=== PATIENT | male | born 1940 | race Caucasian/White ===

== ENCOUNTER 2019-10-23 17:21 | Observation (INO) | payer OTHER, MEDICARE ==
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
--- NOTE | 2019-10-23 18:35 | RADIOLOGY REPORT (SQ) ---
EXAM DESCRIPTION: CHEST 2 VIEWS IMAGES COMPLETED DATE/TIME: 10/23/2019 6:15 pm REASON FOR STUDY: chest pain has taken ntg x 3 pacemaker COMPARISON: None. EXAM PARAMETERS: NUMBER OF VIEWS: two views TECHNIQUE: Digital Frontal and Lateral radiographic views of the chest acquired. RADIATION DOSE: NA LIMITATIONS: none FINDINGS: LUNGS AND PLEURA: No opacities, masses or pneumothorax. No pleural effusion. MEDIASTINUM AND HILAR STRUCTURES: No masses or contour abnormalities. HEART AND VASCULAR STRUCTURES: Heart normal size. No evidence for failure. BONES: No acute findings. HARDWARE: Transvenous cardiac pacer. OTHER: No other significant finding. IMPRESSION: No evidence of acute cardiopulmonary abnormality. TECHNICAL DOCUMENTATION: JOB ID: [id number] 2010 [employer]- All Rights Reserved Reading location - IP/workstation name: [email or web address]
[2019-10-23 19:00] LABS: ABSOLUTE EOSINOPHILS # (AUTO) 0.2 10^3/uL (0.0-0.6); ABSOLUTE MONOCYTES (AUTO) 0.5 10^3/uL (0.1-1.4); ABSOLUTE NEUT (AUTO) 3.2 10^3/uL (1.7-8.2); BASOPHILS % (AUTO) 0.4 % (0-2); EOSINOPHILS % (AUTO) 4.5 % (0-6); HEMATOCRIT 39.2 % (37.9-51.0); HEMOGLOBIN 13.3 g/dL (13.5-17.0); LYMPHOCYTES % (AUTO) 19.2 % (13-45); MEAN CORPUSCULAR HEMOGLOBIN 30.1 pg (27.0-33.4); MEAN CORPUSCULAR VOLUME 89 fl (80-97); MONOCYTES % (AUTO) 10.3 % (3-13); PLATELET COUNT 145 10^3/uL (150-450); RED BLOOD COUNT 4.43 10^6/uL (4.35-5.55); RED CELL DISTRIBUTION WIDTH 14.6 % (11.5-14.0); SEGMENTED NEUTROPHILS % (AUTO) 65.6 % (42-78); TOTAL CELLS COUNTED % (AUTO) 100 %; WHITE BLOOD COUNT 4.9 10^3/uL (4.0-10.5)
[2019-10-23 19:10] LABS: INTERNATIONAL RATION (INR) 0.95; PROTHROMBIN TIME 12.9 SEC (11.4-15.4)
[2019-10-23 19:11] LABS: PARTIAL THROMBOPLASTIN TIME 31.6 SEC (23.5-35.8)
[2019-10-23 19:17] LABS: ALBUMIN 3.8 g/dL (3.5-5.0); ALKALINE PHOSPHATASE 71 U/L (38-126); ANION GAP 7 (5-19); ASPARTATE AMINO TRANSFERASE 22 U/L (17-59); BILIRUBIN,DIRECT 0.2 mg/dL (0.0-0.4); BILIRUBIN,TOTAL 0.6 mg/dL (0.2-1.3); BLOOD UREA NITROGEN 18 mg/dL (7-20); CALCIUM 8.9 mg/dL (8.4-10.2); CARBON DIOXIDE 30 mmol/L (22-30); CHLORIDE 99 mmol/L (98-107); CREATINE KINASE 102 U/L (55-170); GLUCOSE 110 mg/dL (75-110); POTASSIUM 3.9 mmol/L (3.6-5.0); TOTAL PROTEIN 6.5 g/dL (6.3-8.2)
[2019-10-23 19:31] LABS: NT PRO BNP 146 pg/mL (<450)
[2019-10-23 19:33] LABS: TROPONIN I < 0.012 ng/mL
--- NOTE | 2019-10-23 20:53 | EKG REPORT ---
SEVERITY:- ABNORMAL ECG - SINUS OR ECTOPIC ATRIAL RHYTHM FIRST DEGREE AV BLOCK BORDERLINE IVCD WITH LAD : Confirmed by: Clement Curtis MD 23-Oct-2019 20:52:17
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
[2019-10-23] MEDS ORDERED: MORPHINE SULFATE 10 MG/ML INJ IV ONE (21:20)
[2019-10-23] MEDS ORDERED: ONDANSETRON HCL INJ/PF 4 MG/2 ML SDV IV ONE (21:21)
[2019-10-24] MEDS ORDERED: MAG HYDROX/AL HYDROX/SIMETH SUSP 30 ML UDCUP PO PRN (00:22)
[2019-10-24] MEDS ORDERED: MAGNESIUM HYDROXIDE SUSP 30 ML UDCUP PO PRN (00:22)
[2019-10-24] MEDS ORDERED: LEVALBUTEROL HCL NEB 0.63 MG/3 ML AMPUL NEB PRN (00:22)
[2019-10-24] MEDS ORDERED: ONDANSETRON HCL INJ/PF 4 MG/2 ML SDV IV PRN (00:22)
[2019-10-24] MEDS ORDERED: METOPROLOL TARTRATE PF/INJ 5 MG/5 ML SDV IV PRN (00:25)
[2019-10-24] MEDS ORDERED: MELATONIN 5 MG TABLET PO PRN (00:25)
[2019-10-24] MEDS ORDERED: GUAIFENESIN SYRP 200 MG/10 ML UDC PO PRN (00:25)
[2019-10-24] MEDS ORDERED: HYDRALAZINE HCL INJ/PF 20 MG/1 ML SDV IV PRN (00:25)
[2019-10-24] MEDS ORDERED: LORAZEPAM INJ 2 MG/1 ML VIAL IV PRN (00:25)
[2019-10-24] MEDS ORDERED: MORPHINE SULFATE 10 MG/ML INJ IV PRN ×3 (00:25→00:31)
[2019-10-24] MEDS ORDERED: ACETAMINOPHEN 325 MG TABLET PO PRN (00:25)
[2019-10-24] MEDS: MORPHINE SULFATE 10 MG/ML INJ IV PRN ×2 (02:08→05:55)
--- NOTE | 2019-10-24 02:21 | PDOC H&P ---
History of Present Illness Admission Date/PCP: 10/23/2019 23:51 [facility] Patient complains of: Chest pain History of Present Illness: MALLORY ORDONEZ is a 79 year old male who presented to the emergency room with a 1 day history of chest pain. He admits the onset of episodic chest pains this morning and occurring an additional 2 times prior to being seen in the emergency room. The chest pain is a severe stabbing pain in his left chest which radiates to his left shoulder and then into the left side of his neck. The episodes of pain last for less than a minute and are accompanied by diaphoresis. He denies other associated or accompanying signs and symptoms with the pain. He denies prior similar episodes. He has not identified any aggravating or ameliorating factors for his chest pain. In the emergency room he was noted to have a negative cardiac evaluation but was subsequently admitted to the hospital for further evaluation and treatment on observation status. Past Medical History Cardiac Medical History: Reports: Congestive Heart Failure, DVT, Hyperlipidema, Hypertension, Pulmonary Embolism Pulmonary Medical History: Denies: Asthma, Chronic Obstructive Pulmonary Disease (COPD), Sleep Apnea EENT Medical History: Denies: Cataracts, Ears - Hearing aids Neurological Medical History: Denies: Hemorrhagic CVA, Ischemic CVA, Seizures Endocrine Medical History: Reports: Obesity Denies: Diabetes Mellitus Type 1, Diabetes Mellitus Type 2, Hyperthyroidism, Hypothyroidism Renal/ Medical History: Denies: Chronic Kidney Disease, Nephrolithiasis Malignancy Medical History: Reports: None GI Medical History: Denies: Cirrhosis, Hepatitis, Peptic Ulcer Disease Musculoskeltal Medical History: Denies: Fibromyalgia, Gout Skin Medical History: Denies: Eczema Psychiatric Medical History: Denies: Alcohol Dependency, Substance Abuse, Tobacco Dependency Traumatic Medical History: Reports: None Hematology: Denies: Anemia, Bleeding Tendencies Infectious Medical History: Reports: None Past Surgical History Past Surgical History: Reports: Appendectomy, Internal Defibrillator - With pacemaker, Orthopedic Surgery - Back surgery Social History Information Source: Patient Lives with: Spouse/Significant other Smoking Status: Former Smoker Electronic Cigarette use?: No Frequency of Alcohol Use: None Hx Recreational Drug Use: No Drugs: None Hx Prescription Drug Abuse: No - Advance Directive Resuscitation Status: Full Code Surrogate healthcare decision maker:: Vaishali Ordonez Family History Family History: denies: CAD, DM, Hypertension, Malignancy Parental Family History Reviewed: Yes Children Family History Reviewed: No Sibling(s) Family History Reviewed.: Yes Medication/Allergy Allergies/Adverse Reactions: No Known Allergies Allergy (Verified 10/23/19 17:57) Review of Systems Constitutional: ABSENT: chills, fever(s) Eyes: ABSENT: visual disturbances, other - Eye pain Ears: ABSENT: hearing changes, other - Ear pain Nose, Mouth, and Throat: ABSENT: headache(s), sore throat Cardiovascular: PRESENT: as per HPI, chest pain. ABSENT: palpitations Respiratory: ABSENT: cough, dyspnea Gastrointestinal: ABSENT: abdominal pain, constipation, diarrhea, nausea, vomiting Musculoskeletal: ABSENT: joint swelling, muscle weakness Integumentary: PRESENT: as per HPI, diaphoresis. ABSENT: pruritus, rash Neurological: ABSENT: confusion, convulsions, focal weakness, numbness, syncope Psychiatric: ABSENT: anxiety, depression Endocrine: ABSENT: cold intolerance, heat intolerance Hematologic/Lymphatic: ABSENT: easy bleeding, easy bruising Allergic/Immunologic: ABSENT: seasonal rhinorrhea Physical Exam Vital Signs: Temp Pulse Resp BP Pulse Ox 98.4 F 64 18 119/55 L 93 10/23/19 17:43 10/23/19 17:43 10/23/19 22:03 10/23/19 22:03 10/23/19 22:08 Intake & Output 10/21/19 10/22/19 10/23/19 23:59 23:59 23:59 Weight 117.934 kg General appearance: PRESENT: no acute distress, obese Head exam: PRESENT: atraumatic, normocephalic Eye exam: PRESENT: conjunctiva pink. ABSENT: conjunctival injection, scleral icterus Ear exam: PRESENT: normal external ear exam. ABSENT: bleeding, drainage Mouth exam: PRESENT: dry mucosa, neck supple Neck exam: ABSENT: thyromegaly, tracheal deviation Respiratory exam: PRESENT: clear to auscultation tim, symmetrical, unlabored Cardiovascular exam: PRESENT: RRR. ABSENT: clicks, gallop, rubs Pulses: PRESENT: normal radial pulses, normal dorsalis pedis pul Vascular exam: PRESENT: normal capillary refill. ABSENT: pallor GI/Abdominal exam: PRESENT: normal bowel sounds, soft. ABSENT: tenderness Rectal exam: PRESENT: deferred Extremities exam: ABSENT: joint swelling, pedal edema Musculoskeletal exam: ABSENT: deformity, dislocation Neurological exam: PRESENT: alert, oriented to person, oriented to place, oriented to time, oriented to situation, CN II-XII grossly intact. ABSENT: motor sensory deficit Psychiatric exam: PRESENT: appropriate affect, normal mood Skin exam: PRESENT: dry, intact, warm. ABSENT: jaundice, rash, urticaria Results Laboratory Results: 10/23/19 18:39 10/23/19 18:39 10/23/19 10/23/19 18:39 18:39 WBC 4.9 RBC 4.43 Hgb 13.3 L Hct 39.2 MCV 89 MCH 30.1 MCHC 34.0 RDW 14.6 H Plt Count 145 L Seg Neutrophils % 65.6 Sodium 136.1 L Potassium 3.9 Chloride 99 Carbon Dioxide 30 Anion Gap 7 BUN 18 Creatinine 1.23 Est GFR ( Amer) > 60 Glucose 110 Calcium 8.9 Magnesium 1.9 Total Bilirubin 0.6 AST 22 Alkaline Phosphatase 71 Total Protein 6.5 Albumin 3.8 10/23/19 10/23/19 10/23/19 18:39 18:39 22:40 Creatine Kinase 102 Troponin I < 0.012 < 0.012 NT-Pro-B Natriuret Pep 146 Impressions: Chest X-Ray 10/23/19 18:01 IMPRESSION: No evidence of acute cardiopulmonary abnormality. Assessment and Plan - Diagnosis (1) Chest pain Qualifiers: Chest pain type: unspecified Qualified Code(s): R07.9 - Chest pain, unspecified Is this a current diagnosis for this admission?: Yes (2) Hypertension Qualifiers: Hypertension type: essential hypertension Qualified Code(s): I10 - Essential (primary) hypertension Is this a current diagnosis for this admission?: Yes (3) Hyperlipidemia Qualifiers: Hyperlipidemia type: unspecified Qualified Code(s): E78.5 - Hyperlipidemia, unspecified Is this a current diagnosis for this admission?: Yes (4) Chronic congestive heart failure Qualifiers: Heart failure type: unspecified Qualified Code(s): I50.9 - Heart failure, unspecified Is this a current diagnosis for this admission?: Yes - Plan Summary Summary: Patient will be admitted to the medical service where he will receive routine supportive and symptomatic cares in a telemetry bed. A cardiology consultation with Dr. Curtis will be obtained. Serial cardiac enzymes will be performed. Patient will receive morphine sulfate 2 to 4 mg IV every 2 hours as needed for pain. He will receive Ativan 1 mg IV every 4 hours as needed for anxiety or restlessness. He will be placed on a cardiac diet. Patient's home medications will be resumed, as appropriate, as soon as his medication list can be verified and reconciled. CBCs, metabolic profiles, lipid profiles, thyroid profiles and additional laboratory and/or radiographic evaluations will be obtained as ne eded. - Time Time Spent with patient: 15-24 minutes Medications reviewed and adjusted accordingly: Yes Anticipated Discharge Disposition: Home, Self Care Anticipated Discharge Timeframe: within 48 hours - Inpatient Certification Based on my medical assessment, after consideration of the patient's comorbidities, presenting symptoms, or acuity I expect that the services needed warrant INPATIENT care.: Yes I certify that my determination is in accordance with my understanding of Medicare's requirements for reasonable and necessary INPATIENT services [42 CFR 412.3e].: Yes Medical Necessity: Need Close Monitoring Due to Risk of Patient Decompensation, Need For Continuous Telemetry Monitoring, Risk of Complication if Not Cared For in Hospital
[2019-10-24] MEDS: HEPARIN SOD (PORCINE) 5,000 UNIT/ML 1 ML VIAL SUBCUT SCH ×3 (05:03→21:31)
[2019-10-24 06:29] LABS: CREATINE KINASE MB 1.71 ng/mL (<4.55)
[2019-10-24 06:30] LABS: TROPONIN I < 0.012 ng/mL
[2019-10-24] MEDS: FAMOTIDINE 20 MG TABLET PO SCH ×2 (09:11→21:29)
[2019-10-24] MEDS: DOCUSATE SODIUM 100 MG CAPSULE PO SCH ×2 (09:11→19:02)
[2019-10-24 12:19] LABS: CREATINE KINASE MB 1.65 ng/mL (<4.55)
[2019-10-24 12:29] LABS: TROPONIN I < 0.012 ng/mL
[2019-10-24] MEDS ORDERED: NITROGLYCERIN 0.4 MG/TAB 25 TAB/BOTTLE SL PRN (13:15)
--- NOTE | 2019-10-24 13:15 | PDOC PROGRESS REPORT ---
Subjective Progress Note for:: 10/24/19 Subjective:: Patient describes history of having left heart cath done last year at which time he was told that he had some CAD but not obstructive enough for intervention. He denies any stents in the heart. He describes the chest pain as lasting only for several seconds upon occurrence. Does say he takes isosorbide at home. Still awaiting medical reconciliation. Currently not having chest pain. Reason For Visit: CHEST PAIN Physical Exam Vital Signs: Temp Pulse Resp BP Pulse Ox 98.5 F 67 16 125/74 93 10/24/19 11:33 10/24/19 11:33 10/24/19 11:33 10/24/19 11:33 10/24/19 11:33 Intake & Output 10/23/19 10/24/19 10/25/19 06:59 06:59 06:59 Intake Total 450 480 Output Total 400 Balance 50 480 Weight 117.3 kg General appearance: PRESENT: no acute distress, cooperative Neck exam: ABSENT: JVD Respiratory exam: PRESENT: clear to auscultation tim, tachypnea. ABSENT: symmetrical, unlabored Cardiovascular exam: PRESENT: RRR, +S1, +S2. ABSENT: tachycardia GI/Abdominal exam: PRESENT: soft. ABSENT: rebound, rigid, tenderness Neurological exam: PRESENT: alert, awake Results Laboratory Results: 10/23/19 18:39 10/23/19 18:39 10/23/19 10/23/19 18:39 18:39 WBC 4.9 RBC 4.43 Hgb 13.3 L Hct 39.2 MCV 89 MCH 30.1 MCHC 34.0 RDW 14.6 H Plt Count 145 L Seg Neutrophils % 65.6 Sodium 136.1 L Potassium 3.9 Chloride 99 Carbon Dioxide 30 Anion Gap 7 BUN 18 Creatinine 1.23 Est GFR ( Amer) > 60 Glucose 110 Calcium 8.9 Magnesium 1.9 Total Bilirubin 0.6 AST 22 Alkaline Phosphatase 71 Total Protein 6.5 Albumin 3.8 10/23/19 10/23/19 10/23/19 18:39 18:39 22:40 Creatine Kinase 102 CK-MB (CK-2) Troponin I < 0.012 < 0.012 NT-Pro-B Natriuret Pep 146 10/24/19 10/24/19 10/24/19 04:33 04:33 11:12 Creatine Kinase 79 78 CK-MB (CK-2) 1.71 Troponin I < 0.012 NT-Pro-B Natriuret Pep 10/24/19 11:12 Creatine Kinase CK-MB (CK-2) 1.65 Troponin I < 0.012 NT-Pro-B Natriuret Pep Impressions: Chest X-Ray 10/23/19 18:01 IMPRESSION: No evidence of acute cardiopulmonary abnormality. Assessment and Plan - Diagnosis (1) Chest pain Qualifiers: Chest pain type: unspecified Qualified Code(s): R07.9 - Chest pain, unspecified Is this a current diagnosis for this admission?: Yes (2) Hyperlipidemia Qualifiers: Hyperlipidemia type: unspecified Qualified Code(s): E78.5 - Hyperlipidemia, unspecified Is this a current diagnosis for this admission?: Yes (3) Hypertension Qualifiers: Hypertension type: essential hypertension Qualified Code(s): I10 - Essential (primary) hypertension Is this a current diagnosis for this admission?: Yes - Plan Summary Summary: 10/23/2019 Patient will be admitted to the medical service where he will receive routine supportive and symptomatic cares in a telemetry bed. A cardiology consultation with Dr. Curtis will be obtained. Serial cardiac enzymes will be performed. Patient will receive morphine sulfate 2 to 4 mg IV every 2 hours as needed for pain. He will receive Ativan 1 mg IV every 4 hours as needed for anxiety or restlessness. He will be placed on a cardiac diet. Patient's home medications will be resumed, as appropriate, as soon as his medication list can be verified and reconciled. CBCs, metabolic profiles, lipid profiles, thyroid profiles and additional laboratory and/or radiographic evaluations will be obtained as needed. 10/24/2019 D-dimer is normal. Troponins were negative. He admits to having left heart catheterization done by his rounder and backer a year ago at which time he was told that he has CAD but not obstructive enough for intervention. Denies any stents in the heart. Currently not in heart failure. His chest pain episodes seem to be very brief in nature lasting seconds mostly but substernal and radiates to left arm. Wonder if he is having coronary or esophageal spasms. He states he takes isosorbide at home. Still awaiting pharmacy to verify home meds for reconciliation. Cardiology has been consulted. - Time Time Spent with patient: 15-24 minutes Anticipated Discharge Disposition: Home, Self Care Anticipated Discharge Timeframe: within 24 hours
--- NOTE | 2019-10-24 14:31 | PDOC CONSULTATION ---
Consultation Consult Date: 10/24/19 Attending physician:: KATI HENNESSY Provider Consulted: BRISSA MORELOS Consult reason:: Chest pain History of Present Illness Admission Date/PCP: 10/23/19 23:[facility] Patient complains of: Chest pain History of Present Illness: MALLORY ORDONEZ is a 79 year old male With the following active problems 1. Pulmonary embolism 2. Systemic anticoagulation 3. Systemic hypertension 4. Dyslipidemia 5. Left-sided permanent pacemaker Patient was admitted on account of intermittent episodes of sharp stabbing chest pain with radiation across the left shoulder. No prior mention of coronary artery disease. No prior cardiac work-up reported. His permanent pacemaker was implanted originally in urine. Reasons for this are unclear. He is already had a generator change. He is on systemic anticoagulation for pulmonary embolism with warfarin. He reports exposure to agent orange and cardiac ailment on account of that. No further details available. He does not recall his medications. But does not report any recent cardiac evaluation. He does not smoke cigarettes No major surgeries other than pacemaker reported to me. Permanent pacemaker implantation is reported, appendectomy, orthopedic surgery No familial illnesses reported Review of systems is positive for chest pain negative for dyspnea nausea vomiting syncope presyncope PND, orthopnea or abdominal pain. Full 11 review of systems was asked. Pertinent positives noted here and in the HPI all other systems appear to be negative. Past Medical History Cardiac Medical History: Reports: Congestive Heart Failure, DVT, Hyperlipidema, Hypertension, Pulmonary Embolism Pulmonary Medical History: Denies: Asthma, Chronic Obstructive Pulmonary Disease (COPD), Sleep Apnea EENT Medical History: Denies: Cataracts, Ears - Hearing aids Neurological Medical History: Denies: Hemorrhagic CVA, Ischemic CVA, Seizures Endocrine Medical History: Reports: Obesity Denies: Diabetes Mellitus Type 1, Diabetes Mellitus Type 2, Hyperthyroidism, Hypothyroidism Renal/ Medical History: Denies: Chronic Kidney Disease, Nephrolithiasis Malignancy Medical History: Reports: None GI Medical History: Denies: Cirrhosis, Hepatitis, Peptic Ulcer Disease Musculoskeltal Medical History: Denies: Fibromyalgia, Gout Skin Medical History: Denies: Eczema Psychiatric Medical History: Denies: Alcohol Dependency, Depression, Substance Abuse, Tobacco Dependency Traumatic Medical History: Reports: None Hematology: Denies: Anemia, Bleeding Tendencies Infectious Medical History: Reports: None Past Surgical History Past Surgical History: Reports: Appendectomy, Internal Defibrillator - With pacemaker, Orthopedic Surgery - spine, Pacemaker Social History Lives with: Spouse/Significant other Smoking Status: Former Smoker Electronic Cigarette use?: No Frequency of Alcohol Use: None Hx Recreational Drug Use: No Drugs: None Hx Prescription Drug Abuse: No - Advance Directive Resuscitation Status: Full Code Family History Family History: Reviewed & Not Pertinent Parental Family History Reviewed: Yes - No familial no familial illnesses Children Family History Reviewed: NA Sibling(s) Family History Reviewed.: NA Medication/Allergy Home Medications: Amlodipine Besylate [Norvasc 2.5 mg Tablet] 2.5 mg PO DAILY 10/24/19 Aspirin [Ecotrin 81 mg EC Tablet] 81 mg PO DAILY 10/24/19 Atorvastatin Calcium [Lipitor 80 mg Tablet] 80 mg PO QHS 10/24/19 Cholecalciferol (Vitamin D3) [Vitamin D3] 50 mcg PO DAILY 10/24/19 Fluoxetine HCl [Prozac 20 mg Capsule] 40 mg PO DAILY 10/24/19 Furosemide [Lasix 40 mg Tablet] 40 mg PO BID@,12 10/24/19 Gabapentin [Neurontin 300 mg Capsule] 300 mg PO TID 10/24/19 Isosorbide Mononitrate [Imdur 60 mg Tablet.er] 60 mg PO DAILY 10/24/19 Multivitamin 1 tab PO DAILY 10/24/19 Omeprazole 20 mg PO BID 10/24/19 Potassium Citrate [Potassium Citrate ER] 10 meq PO BID 10/24/19 Prazosin HCl [Minipress] 2 mg PO QHS 10/24/19 Ranolazine [Ranexa] 1,000 mg PO DAILY 10/24/19 Tamsulosin HCl [Flomax 0.4 mg Cap.sr] 0.4 mg PO DAILY 10/24/19 Trazodone HCl 100 mg PO QHS 10/24/19 Allergies/Adverse Reactions: No Known Allergies Allergy (Verified 10/23/19 17:57) Review of Systems Constitutional: PRESENT: as per HPI Eyes: PRESENT: as per HPI Ears: PRESENT: as per HPI Cardiovascular: PRESENT: chest pain Physical Exam Vital Signs: Temp Pulse Resp BP Pulse Ox 98.5 F 67 16 125/74 93 10/24/19 11:33 10/24/19 11:33 10/24/19 11:33 10/24/19 11:33 10/24/19 11:33 Intake & Output 09/11/0210/24/19 10/25/19 06:59 06:59 06:59 Intake Total 450 480 Output Total 400 Balance 50 480 Weight 117.3 kg General appearance: PRESENT: no acute distress, cooperative, obese, well- developed, well-nourished Head exam: PRESENT: atraumatic, normocephalic Eye exam: PRESENT: EOMI Mouth exam: PRESENT: moist Respiratory exam: PRESENT: clear to auscultation tim, symmetrical, unlabored Cardiovascular exam: PRESENT: RRR, +S1, +S2 - Left chest wall permanent pacemaker implant site is well-healed. No edema erythema or excoriation is noted Pulses: PRESENT: normal radial pulses GI/Abdominal exam: PRESENT: soft Rectal exam: PRESENT: deferred Neurological exam: PRESENT: alert, awake, oriented to person, oriented to place, oriented to time Psychiatric exam: PRESENT: appropriate affect Skin exam: PRESENT: dry, intact, normal color Results Laboratory Results: 10/23/19 18:39 10/23/19 18:39 10/23/19 10/23/19 18:39 18:39 WBC 4.9 RBC 4.43 Hgb 13.3 L Hct 39.2 MCV 89 MCH 30.1 MCHC 34.0 RDW 14.6 H Plt Count 145 L Seg Neutrophils % 65.6 Sodium 136.1 L Potassium 3.9 Chloride 99 Carbon Dioxide 30 Anion Gap 7 BUN 18 Creatinine 1.23 Est GFR ( Amer) > 60 Glucose 110 Calcium 8.9 Magnesium 1.9 Total Bilirubin 0.6 AST 22 Alkaline Phosphatase 71 Total Protein 6.5 Albumin 3.8 10/23/19 10/23/19 10/23/19 18:39 18:39 22:40 Creatine Kinase 102 CK-MB (CK-2) Troponin I < 0.012 < 0.012 NT-Pro-B Natriuret Pep 146 10/24/19 10/24/19 10/24/19 04:33 04:33 11:12 Creatine Kinase 79 78 CK-MB (CK-2) 1.71 Troponin I < 0.012 NT-Pro-B Natriuret Pep 10/24/19 11:12 Creatine Kinase CK-MB (CK-2) 1.65 Troponin I < 0.012 NT-Pro-B Natriuret Pep EKG Comments: Twelve-lead EKG 10/23/2019. Independently viewed by me. Sinus or ectopic rhythm, 64 bpm, first-degree AV block, IVCD, QTC is 446 ms Chest x-ray 10/23/2019 No evidence of acute cardiopulmonary abnormality Cardiac troponin negative x4 Impressions: Chest X-Ray 10/23/19 18:01 IMPRESSION: No evidence of acute cardiopulmonary abnormality. Assessment & Plan - Diagnosis (1) Chest pain Qualifiers: Chest pain type: unspecified Qualified Code(s): R07.9 - Chest pain, unspecified Is this a current diagnosis for this admission?: Yes Plan: Patient's description of chest pain is atypical with sharp sporadic episodes. There is no effort correlation Although he did not report to me it is chronicled in the chart that patient did have a cardiac catheterization not too long ago. It would be reasonable to procure the results of this test. If there was no obstructive coronary artery disease mentioned and as patient reports he is never received any stents there is no indication to pursue stress testing. Would hold off on proceeding with any testing until we get reports. This can be pursued as an outpatient Would recommend continuing medications as before once we procure a list from the . (2) Hypertension Qualifiers: Hypertension type: essential hypertension Qualified Code(s): I10 - Essential (primary) hypertension Is this a current diagnosis for this admission?: Yes Plan: Continue home medications. (3) Hyperlipidemia Qualifiers: Hyperlipidemia type: unspecified Qualified Code(s): E78.5 - Hyperlipidemia, unspecified Is this a current diagnosis for this admission?: Yes Plan: Continue statin per home regimen. (4) Pacemaker Is this a current diagnosis for this admission?: Yes Plan: Original indication for permanent pacemaker is not apparent. Pacemaker site is well-healed.
[2019-10-24] MEDS: RANOLAZINE 500 MG TAB.SR.12H PO SCH (21:29)
[2019-10-24] MEDS ORDERED: TRAZODONE HCL 50 MG TABLET PO SCH (22:00)
[2019-10-24] MEDS ORDERED: ATORVASTATIN CALCIUM 80 MG TABLET PO SCH (22:00)
[2019-10-25 05:29] LABS: HEMATOCRIT 37.7 % (37.9-51.0); HEMOGLOBIN 12.7 g/dL (13.5-17.0); MEAN CORPUSCULAR HEMOGLOBIN 29.9 pg (27.0-33.4); MEAN CORPUSCULAR HGB CONC 33.7 g/dL (32.0-36.0); MEAN CORPUSCULAR VOLUME 89 fl (80-97); PLATELET COUNT 119 10^3/uL (150-450); RED BLOOD COUNT 4.25 10^6/uL (4.35-5.55); RED CELL DISTRIBUTION WIDTH 14.7 % (11.5-14.0); WHITE BLOOD COUNT 4.6 10^3/uL (4.0-10.5)
[2019-10-25] MEDS: HEPARIN SOD (PORCINE) 5,000 UNIT/ML 1 ML VIAL SUBCUT SCH (05:36)
[2019-10-25 05:48] LABS: ANION GAP 5 (5-19); BLOOD UREA NITROGEN 16 mg/dL (7-20); CALCIUM 8.5 mg/dL (8.4-10.2); CARBON DIOXIDE 32 mmol/L (22-30); CHLORIDE 99 mmol/L (98-107); GLUCOSE 90 mg/dL (75-110); POTASSIUM 4.2 mmol/L (3.6-5.0); TRIGLYCERIDES 149 mg/dL (<150)
[2019-10-25 05:58] LABS: DIRECT LDL 55 mg/dL (<100)
[2019-10-25] MEDS ORDERED: FUROSEMIDE 40 MG TABLET PO SCH (08:00)
[2019-10-25] MEDS ORDERED: AMLODIPINE BESYLATE 2.5 MG TABLET PO SCH (10:00)
[2019-10-25] MEDS ORDERED: ASPIRIN 81 MG TABLET, ENT COATED PO SCH (10:00)
[2019-10-25] MEDS ORDERED: GABAPENTIN 300 MG CAPSULE PO SCH (10:00)
[2019-10-25] MEDS ORDERED: FLUOXETINE HCL 20 MG CAPSULE PO SCH (10:00)
[2019-10-25] MEDS ORDERED: TAMSULOSIN HCL 0.4 MG CAP.SR.24H PO SCH (10:00)
[2019-10-25] MEDS ORDERED: ISOSORBIDE MONONITRATE 60 MG TAB.ER.24H PO SCH (10:00)
[2019-10-25] MEDS ORDERED: MULTIVITAMIN TABLET PO SCH (10:00)
--- NOTE | 2019-10-25 11:38 | PDOC DISCHARGE SUMMARY ---
Impression - Admit/DC Date/PCP Admission Date/Primary Care Provider: 10/23/19 23:58 [facility] Discharge Date: 10/25/19 - Discharge Diagnosis (1) Chest pain Is this a current diagnosis for this admission?: Yes (2) Hyperlipidemia Is this a current diagnosis for this admission?: Yes (3) Hypertension Is this a current diagnosis for this admission?: Yes (4) CAD (coronary artery disease) Is this a current diagnosis for this admission?: Yes - Additional Information Resuscitation Status: Full Code Discharge Diet: As Tolerated, Cardiac Discharge Activity: Activity As Tolerated Referrals: BRISSA MORELOS MD [ACTIVE STAFF] - MOY CHASE JR, PA-C [NO LOCAL MD] - 11/07/19 2:30 pm GONZALO WINTER MD [NO LOCAL MD] - [facility] [Primary Care Provider] - Prescriptions: Isosorbide Mononitrate [Imdur 30 mg Tablet.er] 90 mg PO DAILY 30 Days #90 tab.er.24h Home Medications: Amlodipine Besylate [Norvasc 2.5 mg Tablet] 2.5 mg PO DAILY 10/24/19 Aspirin [Ecotrin 81 mg EC Tablet] 81 mg PO DAILY 10/24/19 Atorvastatin Calcium [Lipitor 80 mg Tablet] 80 mg PO QHS 10/24/19 Cholecalciferol (Vitamin D3) [Vitamin D3] 50 mcg PO DAILY 10/24/19 Fluoxetine HCl [Prozac 20 mg Capsule] 40 mg PO DAILY 10/24/19 Furosemide [Lasix 40 mg Tablet] 40 mg PO BID@08,12 10/24/19 Gabapentin [Neurontin 300 mg Capsule] 300 mg PO TID 10/24/19 Multivitamin 1 tab PO DAILY 10/24/19 Omeprazole 20 mg PO BID 10/24/19 Potassium Citrate [Potassium Citrate ER] 10 meq PO BID 10/24/19 Prazosin HCl [Minipress] 2 mg PO QHS 10/24/19 Ranolazine [Ranexa] 1,000 mg PO DAILY 10/24/19 Tamsulosin HCl [Flomax 0.4 mg Cap.sr] 0.4 mg PO DAILY 10/24/19 Trazodone HCl 100 mg PO QHS 10/24/19 Isosorbide Mononitrate [Imdur 30 mg Tablet.er] 90 mg PO DAILY 30 Days #90 tab.er.24h 10/25/19 History of Present Illiness History of Present Illness: According to admitting provider: MALLORY ORDONEZ is a 79 year old male who presented to the emergency room with a 1 day history of chest pain. He admits the onset of episodic chest pains this morning and occurring an additional 2 times prior to being seen in the emergency room. The chest pain is a severe stabbing pain in his left chest which radiates to his left shoulder and then into the left side of his neck. The episodes of pain last for less than a minute and are accompanied by diaphoresis. He denies other associated or accompanying signs and symptoms with the pain. He denies prior similar episodes. He has not identified any aggravating or ameliorating factors for his chest pain. In the emergency room he was noted to have a negative cardiac evaluation but was subsequently admitted to the hospital for further evaluation and treatment on observation status. Hospital Course Hospital Course: 10/23/2019 Patient will be admitted to the medical service where he will receive routine supportive and symptomatic cares in a telemetry bed. A cardiology consultation with Dr. Morelos will be obtained. Serial cardiac enzymes will be performed. Patient will receive morphine sulfate 2 to 4 mg IV every 2 hours as needed for pain. He will receive Ativan 1 mg IV every 4 hours as needed for anxiety or restlessness. He will be placed on a cardiac diet. Patient's home medications will be resumed, as appropriate, as soon as his medication list can be verified and reconciled. CBCs, metabolic profiles, lipid profiles, thyroid profiles and additional laboratory and/or radiographic evaluations will be obtained as needed. 10/24/2019 D-dimer is normal making PE unlikely. Troponins were negative. He admits to having left heart catheterization done by his acidity tester a year ago at which time he was told that he has CAD but not obstructive enough for intervention. Denies any stents in the heart. Currently not in heart failure. His chest pain episodes seem to be very brief in nature lasting seconds mostly but substernal and radiates to left arm. Wonder if he is having coronary or esophageal spasms. He states he takes isosorbide at home. Still awaiting pharmacy to verify home meds for reconciliation. Cardiology has been consulted. 10/25/2019 Patient was evaluated by Dr. Brissa Morelos yesterday who recommends continuation of medical management with further optimization and outpatient follow-up for potential stress test repeat. Notably as noted above, patient did endorse history of nonobstructive CAD not significant enough to warrant intervention on his last [facility] last year in [place]. He voiced concerns about going all the way to [place] to continue to follow-up with his acidity tester there as it is too far. [facility] [place] to get him referral to see Dr. Morelos but was told that he has already been set up with [facility]iology [facility] close to him in [place] who he is scheduled to see on 11/07/2019 at 2:30 PM. He will follow-up with him. I have also left information for Dr. Morelos if patient would like to follow with Dr. Morelos. We have increased his Imdur to 90 mg daily from 60 mg. He is to continue Ranexa and his other cardiac medications. Physical Exam Vital Signs: Temp Pulse Resp BP Pulse Ox 98.0 F 61 16 146/61 H 92 10/25/19 07:49 10/25/19 10:43 10/25/19 10:43 10/25/19 07:49 10/25/19 10:43 Intake & Output 10/24/19 10/25/19 10/26/19 06:59 06:59 06:59 Intake Total 450 1200 Output Total 400 Balance 50 1200 Weight 117.3 kg 117.3 kg General appearance: PRESENT: no acute distress, cooperative Neck exam: ABSENT: JVD Respiratory exam: PRESENT: unlabored Cardiovascular exam: ABSENT: tachycardia Neurological exam: PRESENT: alert, awake, oriented to person, oriented to place, oriented to time, oriented to situation Results Laboratory Results: WBC 4.6 10^3/uL (4.0-10.5) 10/25/19 04:25 RBC 4.25 10^6/uL (4.35-5.55) L 10/25/19 04:25 Hgb 12.7 g/dL (13.5-17.0) L 10/25/19 04:25 Hct 37.7 % (37.9-51.0) L 10/25/19 04:25 MCV 89 fl (80-97) 10/25/19 04:25 MCH 29.9 pg (27.0-33.4) 10/25/19 04:25 MCHC 33.7 g/dL (32.0-36.0) 10/25/19 04:25 RDW 14.7 % (11.5-14.0) H 10/25/19 04:25 Plt Count 119 10^3/uL (150-450) L 10/25/19 04:25 Lymph % (Auto) 19.2 % (13-45) 10/23/19 18:39 Fisher % (Auto) 10.3 % (3-13) 10/23/19 18:39 Eos % (Auto) 4.5 % (0-6) 10/23/19 18:39 Baso % (Auto) 0.4 % (0-2) 10/23/19 18:39 Absolute Neuts (auto) 3.2 10^3/uL (1.7-8.2) 10/23/19 18:39 Absolute Lymphs (auto) 1.0 10^3/uL (0.5-4.7) 10/23/19 18:39 Absolute Monos (auto) 0.5 10^3/uL (0.1-1.4) 10/23/19 18:39 Absolute Eos (auto) 0.2 10^3/uL (0.0-0.6) 10/23/19 18:39 Absolute Basos (auto) 0.0 10^3/uL (0.0-0.2) 10/23/19 18:39 Seg Neutrophils % 65.6 % (42-78) 10/23/19 18:39 PT 12.9 SEC (11.4-15.4) 10/23/19 18:39 INR 0.95 10/23/19 18:39 APTT 31.6 SEC (23.5-35.8) 10/23/19 18:39 D-Dimer 0.33 ug/mL (0.00-0.50) 10/23/19 21:59 Sodium 135.7 mmol/L (137-145) L 10/25/19 04:25 Potassium 4.2 mmol/L (3.6-5.0) 10/25/19 04:25 Chloride 99 mmol/L (98-107) 10/25/19 04:25 Carbon Dioxide 32 mmol/L (22-30) H 10/25/19 04:25 Anion Gap 5 (5-19) 10/25/19 04:25 BUN 16 mg/dL (7-20) 10/25/19 04:25 Creatinine 1.31 mg/dL (0.52-1.25) H 10/25/19 04:25 Est GFR ( Amer) > 60 (>60) 10/25/19 04:25 Est GFR (MDRD) Non-Af 53 (>60) L 10/25/19 04:25 Glucose 90 mg/dL (75-110) 10/25/19 04:25 Calcium 8.5 mg/dL (8.4-10.2) 10/25/19 04:25 Magnesium 2.0 mg/dL (1.6-2.3) 10/25/19 04:25 Total Bilirubin 0.6 mg/dL (0.2-1.3) 10/23/19 18:39 Direct Bilirubin 0.2 mg/dL (0.0-0.4) 10/23/19 18:39 Neonat Total Bilirubin Not Reportable 10/23/19 18:39 Neonat Direct Bilirubin Not Reportable 10/23/19 18:39 Neonat Indirect Bili Not Reportable 10/23/19 18:39 AST 22 U/L (17-59) 10/23/19 18:39 ALT 17 U/L (<50) 10/23/19 18:39 Alkaline Phosphatase 71 U/L (38-126) 10/23/19 18:39 Creatine Kinase 78 U/L (55-170) 10/24/19 11:12 CK-MB (CK-2) 1.65 ng/mL (<4.55) 10/24/19 11:12 Troponin I < 0.012 ng/mL 10/24/19 11:12 NT-Pro-B Natriuret Pep 146 pg/mL (<450) 10/23/19 18:39 Total Protein 6.5 g/dL (6.3-8.2) 10/23/19 18:39 Albumin 3.8 g/dL (3.5-5.0) 10/23/19 18:39 Triglycerides 149 mg/dL (<150) 10/25/19 04:25 Cholesterol 113.00 mg/dL (0-200) 10/25/19 04:25 LDL Cholesterol Direct 55 mg/dL (<100) 10/25/19 04:25 VLDL Cholesterol 30.0 mg/dL (10-31) 10/25/19 04:25 HDL Cholesterol 34 mg/dL (>40) L 10/25/19 04:25 TSH 1.57 uIU/mL (0.47-4.68) 10/25/19 04:25 10/23/19 10/23/19 10/24/19 18:39 22:40 04:33 CK-MB (CK-2) 1.71 Troponin I < 0.012 < 0.012 < 0.012 NT-Pro-B Natriuret Pep 146 10/24/19 11:12 CK-MB (CK-2) 1.65 Troponin I < 0.012 NT-Pro-B Natriuret Pep Impressions: Chest X-Ray 10/23/19 18:01 IMPRESSION: No evidence of acute cardiopulmonary abnormality. Plan Time Spent: Less than 30 Minutes Stroke Is this a Stroke Patient?: No Acute Heart Failure Is this a Heart Failure Patient?: No
[2019-10-25] MEDS: FAMOTIDINE 20 MG TABLET PO SCH (11:41)
[2019-10-25] MEDS: DOCUSATE SODIUM 100 MG CAPSULE PO SCH (11:43)
[2019-10-25] MEDS: RANOLAZINE 500 MG TAB.SR.12H PO SCH (11:46)
[2019-10-25 14:51] VITALS: BP 110/60
== END 2019-10-25 15:10 | disposition home or self-care (01) ==
LOC: ER 17:21 → EH 23:58 → 4N 10-24 02:00
PROVIDERS: ADMIT Emergency Medicine; ATTEND Internal Medicine
DX: R07.2 Precordial pain (principal); E78.5 Hyperlipidemia, unspecified; I11.0 Hypertensive heart disease with heart failure; I50.9 Heart failure, unspecified; I25.10 Atherosclerotic heart disease of native coronary artery without angina pectoris; E66.9 Obesity, unspecified; R61 Generalized hyperhidrosis; R06.82 Tachypnea, not elsewhere classified; G89.29 Other chronic pain; I44.0 Atrioventricular block, first degree; I45.89 Other specified conduction disorders; I27.82 Chronic pulmonary embolism; Z57.4 Occupational exposure to toxic agents in agriculture; Z79.01 Long term (current) use of anticoagulants; Z79.899 Other long term (current) drug therapy; Z79.82 Long term (current) use of aspirin; Z87.891 Personal history of nicotine dependence; Z95.810 Presence of automatic (implantable) cardiac defibrillator; Z86.718 Personal history of other venous thrombosis and embolism; Z79.891 Long term (current) use of opiate analgesic
CPT/HCPCS: 93005; 99285; 96374; 96375; 36415 ×3; 82553; 82550 ×2; 83735 ×2; 84443; 85025; 85027; 85610; 85730; 80048; 80053; 84484 ×2; 85379; 80061; 83880; 71046; 93010; G0378 ×2; J2270 ×2; J3490 ×2; J2405

== ENCOUNTER 2019-12-03 23:25 | Emergency (ER) | payer OTHER, MEDICARE ==
[2019-12-03 23:51] LABS: ABSOLUTE EOSINOPHILS # (AUTO) 0.2 10^3/uL (0.0-0.6); ABSOLUTE LYMPHOCYTES (AUTO) 1.2 10^3/uL (0.5-4.7); ABSOLUTE MONOCYTES (AUTO) 0.6 10^3/uL (0.1-1.4); ABSOLUTE NEUT (AUTO) 3.7 10^3/uL (1.7-8.2); BASOPHILS % (AUTO) 0.6 % (0-2); EOSINOPHILS % (AUTO) 3.1 % (0-6); HEMATOCRIT 37.6 % (37.9-51.0); HEMOGLOBIN 13.1 g/dL (13.5-17.0); LYMPHOCYTES % (AUTO) 20.7 % (13-45); MEAN CORPUSCULAR VOLUME 89 fl (80-97); MONOCYTES % (AUTO) 10.9 % (3-13); PLATELET COUNT 154 10^3/uL (150-450); RED BLOOD COUNT 4.24 10^6/uL (4.35-5.55); RED CELL DISTRIBUTION WIDTH 14.9 % (11.5-14.0); SEGMENTED NEUTROPHILS % (AUTO) 64.7 % (42-78); TOTAL CELLS COUNTED % (AUTO) 100 %; WHITE BLOOD COUNT 5.7 10^3/uL (4.0-10.5)
[2019-12-03 23:55] LABS: INTERNATIONAL RATION (INR) 0.98; PARTIAL THROMBOPLASTIN TIME 31.1 SEC (23.5-35.8); PROTHROMBIN TIME 13.2 SEC (11.4-15.4)
--- NOTE | 2019-12-03 23:58 | ER Document Report ---
ED Cardiac - General Chief Complaint: Chest Pain Stated Complaint: CHEST PAIN Time Seen by Provider: 12/03/19 23:40 [facility] Care Provider: [facility] [[facility]] - Follow up as needed Mode of Arrival: Medic Information source: Patient, Emergency Med Personnel Notes: 79-year-old male arrives by EMS after he began to have left-sided chest pain feeling like a heavy foot is on his chest that began as he was reading the Bible at his work study desk [employer] around 1800. 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 He has history of CAD pacemaker hyperlipidemia CHF and hypertension but has a history also of pulmonary emboli in 1994. Patient was a [place] vet and [place]. He reports he became dizzy when he started having his chest pain and he took 3 nitroglycerin tablets and 4 baby aspirin. He was given 20 mcg IV of nitroglycerin prior to arrival and his chest pain has been on and off every 5 minutes. He denies any diaphoresis or s hortness of breath or referral of any chest pain. His blood pressure is 144/61 with no EKG changes like no tachycardia ST elevation or ST depression or T wave changes. TRAVEL OUTSIDE OF THE [place] 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 [place] from 1966 Family History: Reviewed & Not Pertinent - Past Medical History Cardiac Medical History: Reports: Hx Congestive Heart Failure, Hx DVT, Hx Hypercholesterolemia, Hx Hypertension, Hx Pulmonary Embolism Pulmonary Medical History: Denies: Hx Asthma, Hx COPD, Hx Sleep Apnea Neurological Medical History: Denies: Hx Seizures Endocrine Medical History: Denies: Hx Diabetes Mellitus Type 1, Hx Diabetes Mellitus Type 2, Hx Hyperthyroidism, Hx Hypothyroidism Renal/ Medical History: Reports: Hx Kidney Stones GI Medical History: Denies: Hx Cirrhosis, Hx Hepatitis Musculoskeletal Medical History: Denies Hx Fibromyalgia, Denies Hx Gout Skin Medical History: Denies Hx Eczema Psychiatric Medical History: Denies: Hx Depression Infectious Medical History: Denies: Hx Hepatitis Past Surgical History: Reports: Hx Appendectomy, Hx Internal Defibrillator - With pacemaker, Hx Orthopedic Surgery - spine, Hx Pacemaker - Immunizations Hx Diphtheria, Pertussis, Tetanus Vaccination: Yes Review of Systems - Review of Systems Constitutional: No symptoms reported EENT: No symptoms reported Cardiovascular: See HPI, Chest pain Respiratory: No symptoms reported Gastrointestinal: No symptoms reported Genitourinary: No symptoms reported Male Genitourinary: No symptoms reported Musculoskeletal: No symptoms reported Skin: No symptoms reported Hematologic/Lymphatic: No symptoms reported Neurological/Psychological: See HPI, Other - Dizziness Physical Exam - Vital signs Vitals: Temp 98.0 F 12/03/19 23:25 Interpretation: Normal - General General appearance: Appears well, Alert - HEENT Head: Normocephalic, Atraumatic Eyes: Normal Pupils: PERRL - Respiratory Respiratory status: No respiratory distress Chest status: Nontender Breath sounds: Normal Chest palpation: Normal - Cardiovascular Rhythm: Regular Heart sounds: Normal auscultation Murmur: No - Abdominal Inspection: Normal Distension: No distension Bowel sounds: Normal Tenderness: Nontender Organomegaly: No organomegaly - Rectal Prostate: Other - deferred - Genitourinary Scrotum: Other - deferred - Back Back: Normal, Nontender - Extremities General upper extremity: Normal inspection, Nontender, Normal color, Normal ROM, Normal temperature General lower extremity: Normal inspection, Nontender, Normal color, Normal ROM, Normal temperature, Normal weight bearing. No: Huber's sign - Neurological Neuro grossly intact: Yes Cognition: Normal Orientation: AAOx4 Deloris Coma Scale Eye Opening: Spontaneous Deloris Coma Scale Verbal: Oriented Deloris Coma Scale Motor: Obeys Commands Deloris Coma Scale Total: 15 Speech: Normal Motor strength normal: LUE, RUE, LLE, RLE Sensory: Normal - Psychological Associated symptoms: Normal affect, Normal mood - Skin Skin Temperature: Warm Skin Moisture: Dry Skin Color: Normal Course - Vital Signs Vital signs: Temp Pulse Resp BP Pulse Ox 98.0 F 26 H 132/63 H 95 12/03/19 23:25 12/04/19 02:01 12/04/19 02:01 12/04/19 02:01 - Laboratory Result Diagrams: 12/03/19 23:36 12/03/19 23:36 Laboratory results interpreted by me: 12/03/19 12/03/19 23:36 23:36 RBC 4.24 L Hgb 13.1 L Hct 37.6 L RDW 14.9 H Sodium 135.1 L Chloride 97 L Creatinine 1.59 H Est GFR ( Amer) 51 L Est GFR (MDRD) Non-Af 42 L Critical Care Note - Critical Care Note Comments: I spoke with Dr. Miller horseback riding instructor at 0 210 and he advises repeat troponin; patient himself was reevaluated shortly thereafter and he was having no chest pain but was having headaches secondary to the nitroglycerin. He is followed by a horseback riding instructor at [facility] He was given 1 Percocet p.o. by Catina SKELTON. Discharge - Discharge Clinical Impression: Chest pain Qualifiers: Chest pain type: unspecified Qualified Code(s): R07.9 - Chest pain, unspecified Condition: Stable Disposition: HOME, SELF-CARE Additional Instructions: Follow-up with Dr. Miller horseback riding instructor call his office tomorrow return to ER as needed take medicines as directed encourage fluids Referrals: [facility] [Primary [facility]] - Follow up as needed
[2019-12-04 00:13] LABS: ALBUMIN 3.8 g/dL (3.5-5.0); ALKALINE PHOSPHATASE 67 U/L (38-126); ANION GAP 8 (5-19); ASPARTATE AMINO TRANSFERASE 25 U/L (17-59); BILIRUBIN,DIRECT 0.3 mg/dL (0.0-0.4); BILIRUBIN,TOTAL 0.5 mg/dL (0.2-1.3); BLOOD UREA NITROGEN 20 mg/dL (7-20); CALCIUM 9.1 mg/dL (8.4-10.2); CARBON DIOXIDE 30 mmol/L (22-30); CHLORIDE 97 mmol/L (98-107); CREATINE KINASE 109 U/L (55-170); GLUCOSE 96 mg/dL (75-110); POTASSIUM 3.7 mmol/L (3.6-5.0); TOTAL PROTEIN 6.8 g/dL (6.3-8.2)
--- NOTE | 2019-12-04 00:33 | RADIOLOGY REPORT (SQ) ---
EXAM DESCRIPTION: [facility]Lex: XR CHEST 1 VIEW CLINICAL HISTORY: 79 years Male; cp; COMPARISON: 10/23/2019 FINDINGS: Lungs: Lungs are clear, with no focal infiltrate, pneumothorax, or pleural effusion. Mediastinum: Mediastinum is within normal limits for this positioning. Pacemaker remains in place with intact leads. Bones: Bony structures are unremarkable. IMPRESSION: 1. No acute pulmonary findings. 2. Pacemaker
--- NOTE | 2019-12-04 01:44 | RADIOLOGY REPORT (SQ) ---
EXAM DESCRIPTION: CT CHEST WITH INTRAVENOUS CONTRAST CLINICAL HISTORY: Chest pain with history of pulmonary embolism. COMPARISON: None available. TECHNIQUE: CT of the chest was performed with intravenous contrast using pulmonary embolism protocol, followed by CTA of the pulmonary arterial vasculature, with 3D reconstruction of the pulmonary arterial vasculature. The patient was injected with 75 mL Omnipaque [address] exam was performed according to our departmental dose-optimization program, which includes one or more of the following dose reduction techniques: automated exposure control, adjustment of the mA and/or kV according to patient size, and/or use of iterative reconstruction technique. FINDINGS: Exam is technically limited by the suboptimal timing of the contrast bolus. There are no large filling defects in the main pulmonary trunk, or first order or the visualized branches of the bilateral pulmonary arteries, to suggest a large central pulmonary embolism. There is no evidence of clinically significant thoracic aortic aneurysm or thoracic aortic dissection. There is no evidence of clinically significant pericardial effusion. There is moderate coronary artery disease. There are trace bilateral pleural effusions with mild adjacent atelectatic change. There is no pathological axillary, supraclavicular, mediastinal or hilar lymphadenopathy. The thyroid gland is heterogeneous in appearance. Subcentimeter low-density lesion involving the right thyroid lobe is nonspecific and no further follow-up is recommended at this time. There are multilevel degenerative spine changes. Subtle ill-defined sclerosis involving the T6 vertebral body is nonspecific in nature. The visualized upper abdominal structures demonstrate a few punctate calcifications involving the hepatic parenchyma. Although nonspecific, findings are suggestive of sequela of prior granulomatous process. IMPRESSION: 1. Technically limited evaluation without CT evidence of a large central pulmonary embolism. 2. Trace bilateral pleural effusions with mild adjacent atelectatic change.
[2019-12-04 03:40] VITALS: BP 147/72
--- NOTE | 2019-12-04 16:27 | EKG REPORT ---
SEVERITY:- ABNORMAL ECG - SINUS RHYTHM FIRST DEGREE AV BLOCK NONSPECIFIC INTRAVENTRICULAR CONDUCTION DELAY : Confirmed by: Clement Curtis MD 04-Dec-2019 16:26:36
== END 2019-12-04 03:40 | disposition home or self-care (01) ==
LOC: ER 23:25
DX: R07.9 Chest pain, unspecified (principal); I50.9 Heart failure, unspecified; I11.0 Hypertensive heart disease with heart failure; Z86.711 Personal history of pulmonary embolism
CPT/HCPCS: 36415; 71045; 71275; 80053; 82550; 83880; 84484; 85025; 85610; 85730; 93005; 93010; 99285

== ENCOUNTER 2020-01-28 04:27 | Inpatient (IN) | payer OTHER, MEDICARE ==
[2020-01-28] MEDS ORDERED: ACETAMINOPHEN 325 MG TABLET PO ONE (06:34)
--- NOTE | 2020-01-28 06:35 | ER Document Report ---
ED Fever - General Chief Complaint: Fever Stated Complaint: FEVER Time Seen by Provider: 01/28/20 06:08 Primary Care Provider: MAHAMED,ALISE [Primary Care Provider] - Follow up as needed Notes: HPI: 79-year-old male with past medical history as recorded presents today with 1 week of feeling "blah". When I asked him to be more specific he states he has had some intermittent diarrhea with nausea. No vomiting. He states intermittent fevers with a slight cough. He denies any headache, sore throat, neck pain, chest pain, abdominal pain, recent antibiotics, trips out of the country, or leg swelling above baseline. Patient denies a history of COPD or congestive heart failure but is on Lasix. ROS: See HPI All other review of systems reviewed and otherwise negative Reviewed vital signs and nursing note as charted by RN. PHYSICAL EXAM: CONSTITUTIONAL: Alert and oriented and responds appropriately to questions. Well-appearing; well-nourished HEAD: Normocephalic; atraumatic EYES: PERRL; Conjunctivae clear, sclerae non-icteric ENT: Normal nose; bilateral nonpurulent rhinorrhea; moist mucous membranes; p harynx without lesions noted NECK: Supple without meningismus; non-tender; no cervical lymphadenopathy, no masses CARD: Regular rate and rhythm; no murmurs; symmetric distal pulses RESP: Normal chest excursion without splinting or tachypnea; breath sounds clear and equal bilaterally; no wheezing or rails with minimal scattered rhonchi ABD/GI: Normal bowel sounds; non-distended; soft, non-tender BACK: The back appears normal and is non-tender to palpation EXT: Normal ROM in all joints; non-tender to palpation; no edema SKIN: No acute lesions noted NEURO: CN 2-12 intact; 5/5 bilateral upper and lower extremity strength with sensation intact to light touch PSYCH: The patient's mood and manner are appropriate. Grooming and personal hygiene are appropriate. TRAVEL OUTSIDE OF THE [place] IN LAST 30 DAYS: No - Related Data Allergies/Adverse Reactions: No Known Allergies Allergy (Verified 10/23/19 17:57) Past Medical History - Social History Smoking Status: Former Smoker Chew tobacco use (# tins/day): No Frequency of alcohol use: None Drug Abuse: None Family History: Reviewed & Not Pertinent - Past Medical History Cardiac Medical History: Reports: Hx Congestive Heart Failure, Hx DVT, Hx Hypercholesterolemia, Hx Hypertension, Hx Pulmonary Embolism Pulmonary Medical History: Denies: Hx Asthma, Hx COPD, Hx Sleep Apnea Neurological Medical History: Denies: Hx Seizures Endocrine Medical History: Denies: Hx Diabetes Mellitus Type 1, Hx Diabetes Mellitus Type 2, Hx Hyperthyroidism, Hx Hypothyroidism Renal/ Medical History: Reports: Hx Kidney Stones GI Medical History: Denies: Hx Cirrhosis, Hx Hepatitis Musculoskeletal Medical History: Denies Hx Fibromyalgia, Denies Hx Gout Skin Medical History: Denies Hx Eczema Psychiatric Medical History: Denies: Hx Depression Infectious Medical History: Denies: Hx Hepatitis Past Surgical History: Reports: Hx Appendectomy, Hx Cardiac Surgery - pace maker, Hx Internal Defibrillator - With pacemaker, Hx Orthopedic Surgery - spine, Hx Pacemaker - Immunizations Hx Diphtheria, Pertussis, Tetanus Vaccination: Yes Physical Exam - Vital signs Vitals: Resp Pulse Ox 16 96 01/28/20 04:27 01/28/20 04:27 Course - Re-evaluation Re-evalutation: 01/28/20 06:35 Given the above history and physical examination we will obtain an EKG, x-ray of the chest, cardiac panel, blood cultures and lactic acid, and provide a small fluid bolus with Tylenol. I would like to assess for the possibility of coronavirus, pneumonia, urinary tract infection, or sepsis. 01/28/20 07:57 EKG shows normal sinus rhythm with first-degree AV block, left axis deviation, no obvious ST elevation or depression. Labs initially as recorded. X-ray shows no obvious pneumonia or enlarged heart. Supposedly EMS stated that the patient was Covid positive on the rapid test. 01/28/20 10:19 Labs and imaging as recorded. We attempted to take the oxygen off the patient and he desatted to 88. Patient has no chest pain. No unilateral calf pain or swelling. I do believe PE to be unlikely. I have provided Decadron for presumed coronavirus that was tested positive by rapid test by EMS. Patient will be admitted for hypoxia for further evaluation and treatment. - Vital Signs Vital signs: Temp Pulse Resp BP Pulse Ox 101.5 F H 24 H 132/71 H 95 01/28/20 04:46 01/28/20 07:01 01/28/20 07:01 01/28/20 07:01 - Laboratory Results Result Diagrams: 01/28/20 04:35 01/28/20 04:35 Laboratory Results Interpreted: 01/28/20 01/28/20 04:35 04:35 Hgb 13.0 L RDW 14.6 H Plt Count 119 L Sodium 136.0 L Chloride 97 L Carbon Dioxide 35 H Anion Gap 4 L Creatinine 1.45 H Est GFR ( Amer) 57 L Est GFR (MDRD) Non-Af 47 L Critical Laboratory Results Reviewed: Yes Attending or Supervising Physician who Reviewed Labs: [place] - Covid positive - Radiology Results Critical Radiology Results Reviewed: No Critical Results Discharge - Discharge Clinical Impression: Hypoxia, COVID-19 Fever Qualifiers: Fever type: unspecified Qualified Code(s): R50.9 - Fever, unspecified Condition: Fair Disposition: ADMITTED INPATIENT Admitting Provider: Meghan (Hospitalist) Referrals: [facility] [[facility]] - Follow up as needed
[2020-01-28 06:45] LABS: ABSOLUTE LYMPHOCYTES (AUTO) 0.7 10^3/uL (0.5-4.7); ABSOLUTE MONOCYTES (AUTO) 0.5 10^3/uL (0.1-1.4); ABSOLUTE NEUT (AUTO) 3.2 10^3/uL (1.7-8.2); BASOPHILS % (AUTO) 0.3 % (0-2); EOSINOPHILS % (AUTO) 0.1 % (0-6); HEMATOCRIT 39.6 % (37.9-51.0); LYMPHOCYTES % (AUTO) 15.2 % (13-45); MEAN CORPUSCULAR HEMOGLOBIN 29.5 pg (27.0-33.4); MEAN CORPUSCULAR HGB CONC 32.9 g/dL (32.0-36.0); MEAN CORPUSCULAR VOLUME 90 fl (80-97); MONOCYTES % (AUTO) 11.4 % (3-13); PLATELET COUNT 119 10^3/uL (150-450); RED BLOOD COUNT 4.43 10^6/uL (4.35-5.55); RED CELL DISTRIBUTION WIDTH 14.6 % (11.5-14.0); TOTAL CELLS COUNTED % (AUTO) 100 %; WHITE BLOOD COUNT 4.3 10^3/uL (4.0-10.5)
[2020-01-28] MEDS ORDERED: IBUPROFEN 600 MG TABLET PO ONE (07:47)
[2020-01-28] MEDS ORDERED: DEXAMETHASONE SOD PHOS INJ 10 MG/1 ML VIAL PO ONE (07:58)
[2020-01-28 08:00] LABS: BLOOD UREA NITROGEN 19 mg/dL (7-20); CALCIUM 8.9 mg/dL (8.4-10.2); CARBON DIOXIDE 35 mmol/L (22-30); CHLORIDE 97 mmol/L (98-107); GLUCOSE 102 mg/dL (75-110); POTASSIUM 4.2 mmol/L (3.6-5.0)
[2020-01-28 08:01] LABS: ANION GAP 4 (5-19)
[2020-01-28] MEDS ORDERED: IBUPROFEN 600 MG TABLET ONE (08:33)
[2020-01-28] MEDS ORDERED: DEXAMETHASONE CONC 1 MG/ML SOLN ONE (08:44)
--- NOTE | 2020-01-28 08:46 | RADIOLOGY REPORT (SQ) ---
CHEST X-RAY 1 VIEW on 01/28/2020 at 7:09 AM CLINICAL INDICATION: Cough COMPARISON: 12/04/2019 FINDINGS: 2-lead left subclavian pacemaker is noted in place. A few wires are noted projecting over the chest. Vascular calcification is noted in the aorta. There is minimal left basilar atelectasis or scarring. The lungs are otherwise clear. Cardiac, hilar and mediastinal contours are within normal limits. Pulmonary vascularity is within normal limits. IMPRESSION: No acute disease.
[2020-01-28 11:12] LABS: D-DIMER 0.85 ug/mL (0.00-0.50)
[2020-01-28 11:34] LABS: APPEARANCE,URINE CLEAR; BILIRUBIN,URINE NEGATIVE (NEGATIVE); GLUCOSE, URINE NEGATIVE (NEGATIVE); KETONES,URINE NEGATIVE (NEGATIVE); LEUKOCYTE ESTERASE,URINE MODERATE (NEGATIVE); NITRITE,URINE NEGATIVE (NEGATIVE); PROTEIN,URINE 30 mg/dL (NEGATIVE); URINE SPECIFIC GRAVITY 1.028
[2020-01-28 11:35] LABS: COLOR,URINE YELLOW
[2020-01-28 12:10] LABS: C-REACTIVE PROTEIN 62.6 mg/L (<10.0)
[2020-01-28] MEDS: ASCORBIC ACID 500 MG TABLET PO SCH ×2 (12:28→18:54)
[2020-01-28] MEDS: ZINC SULFATE 220 MG CAPSULE PO SCH (12:28)
[2020-01-28] MEDS: CHOLECALCIFEROL (D3) 1,000 UNIT (25 MCG) TABLET PO SCH (12:28)
[2020-01-28] MEDS ORDERED: ACETAMINOPHEN 325 MG TABLET PO PRN (12:41)
[2020-01-28] MEDS ORDERED: MAG HYDROX/AL HYDROX/SIMETH SUSP 30 ML UDCUP PO PRN (12:41)
[2020-01-28] MEDS ORDERED: ONDANSETRON HCL INJ/PF 4 MG/2 ML SDV IV PRN (12:41)
[2020-01-28] MEDS ORDERED: ALBUTEROL SULFATE HFA (90 MCG/PUFF) 8 GM MDI IH PRN (13:00)
[2020-01-28] MEDS ORDERED: IVERMECTIN 3 MG TABLET PO ONE (13:00)
--- NOTE | 2020-01-28 14:20 | EKG REPORT ---
SEVERITY:- ABNORMAL ECG - SINUS RHYTHM FIRST DEGREE AV BLOCK LEFT AXIS DEVIATION : Confirmed by: Jeri Byrd MD 28-Jan-2020 14:18:54
[2020-01-28] MEDS ORDERED: INFLUENZA QUAD (6MOS+) 2020-21 VAC 0.5 ML SYR IM ONE (15:45)
--- NOTE | 2020-01-28 16:08 | PDOC H&P ---
History of Present Illness Admission Date/PCP: 01/28/20 13:11 [facility] Patient complains of: dyspnea History of Present Illness: MALLORY ORDONEZ is a 79 year old male with a past medical history significant forCHF, CAD, AICD, hypertension, hyperlipidemia, pulmonary embolism, GERD, and depression who presented to the emergency department with a complaint of fever, intermittent diarrhea with nausea, dyspnea, and generalized malaise. Evaluation in the emergency department revealed hypoxia on room air, fever (101.5), unremarkable CBC, elevated D-dimer to 0.85, chemistry noted for bicarb 35, CRP 62.6, unremarkable urinalysis. Chest x-ray is benign. Rapid Covid positive. Patient was provided dexamethasone and supplemental oxygen. He is referred to the hospitalist service for further evaluation management of the above-stated complaints findings. Past Medical History Cardiac Medical History: Reports: Congestive Heart Failure, DVT, Hyperlipidema, Hypertension, Pulmonary Embolism Pulmonary Medical History: Denies: Asthma, Chronic Obstructive Pulmonary Disease (COPD), Sleep Apnea EENT Medical History: Reports: None Neurological Medical History: Denies: Seizures Endocrine Medical History: Reports: None Renal/ Medical History: Reports: None GI Medical History: Reports: Gastroesophageal Reflux Disease Denies: Cirrhosis, Hepatitis Musculoskeltal Medical History: Reports: None Skin Medical History: Denies: Eczema Psychiatric Medical History: Reports: Depression Hematology: Denies: Anemia, Bleeding Tendencies Past Surgical History Past Surgical History: Reports: Appendectomy, Internal Defibrillator - With pacemaker, Orthopedic Surgery - spine, Pacemaker Social History Information Source: Patient Lives with: Family Smoking Status: Former Smoker Electronic Cigarette use?: No Frequency of Alcohol Use: None Hx Recreational Drug Use: No Drugs: None Hx Prescription Drug Abuse: No - Advance Directive Resuscitation Status: Full Code Family History Family History: Reviewed & Not Pertinent Parental Family History Reviewed: Yes Children Family History Reviewed: Yes Sibling(s) Family History Reviewed.: Yes Medication/Allergy Home Medications: Amlodipine Besylate [Norvasc 2.5 mg Tablet] 2.5 mg PO DAILY 10/24/19 Aspirin [Ecotrin 81 mg EC Tablet] 81 mg PO DAILY 10/24/19 Atorvastatin Calcium [Lipitor 80 mg Tablet] 80 mg PO QHS 10/24/19 Cholecalciferol (Vitamin D3) [Vitamin D3] 50 mcg PO DAILY 10/24/19 Fluoxetine HCl [Prozac 20 mg Capsule] 40 mg PO DAILY 10/24/19 Furosemide [Lasix 40 mg Tablet] 40 mg PO BID@08,12 10/24/19 Gabapentin [Neurontin 300 mg Capsule] 300 mg PO TID 10/24/19 Multivitamin 1 tab PO DAILY 10/24/19 Omeprazole 20 mg PO BID 10/24/19 Potassium Citrate [Potassium Citrate ER] 10 meq PO BID 10/24/19 Prazosin HCl [Minipress] 2 mg PO QHS 10/24/19 Ranolazine [Ranexa] 1,000 mg PO DAILY 10/24/19 Tamsulosin HCl [Flomax 0.4 mg Cap.sr] 0.4 mg PO DAILY 10/24/19 Trazodone HCl 100 mg PO QHS 10/24/19 Isosorbide Mononitrate [Imdur 30 mg Tablet.er] 90 mg PO DAILY 30 Days #90 tab.er.24h 10/25/19 Allergies/Adverse Reactions: No Known Allergies Allergy (Verified 10/23/19 17:57) Review of Systems Constitutional: PRESENT: anorexia, fatigue, fever(s), headache(s), other - Malaise/myalgia. ABSENT: chills, weight gain, weight loss Eyes: ABSENT: visual disturbances Ears: ABSENT: hearing changes Cardiovascular: ABSENT: chest pain, dyspnea on exertion, edema, orthropnea, palpitations Respiratory: PRESENT: cough, dyspnea. ABSENT: hemoptysis Gastrointestinal: PRESENT: diarrhea, nausea. ABSENT: abdominal pain, constipation, hematemesis, hematochezia, vomiting Genitourinary: ABSENT: dysuria, hematuria Musculoskeletal: ABSENT: joint swelling Integumentary: ABSENT: rash, wounds Neurological: ABSENT: abnormal gait, abnormal speech, confusion, dizziness, focal weakness, syncope Psychiatric: ABSENT: anxiety, depression, homidical ideation, suicidal ideation Endocrine: ABSENT: cold intolerance, heat intolerance, polydipsia, polyuria Hematologic/Lymphatic: ABSENT: easy bleeding, easy bruising Physical Exam Vital Signs: Temp Pulse Resp BP Pulse Ox 97.9 F 63 16 143/65 H 98 01/28/20 14:32 01/28/20 14:56 01/28/20 14:32 01/28/20 14:32 01/28/20 14:32 Intake & Output 01/27/20 01/28/20 01/29/20 06:59 06:59 06:59 Weight 116.3 kg General appearance: PRESENT: no acute distress, cooperative, obese, well- developed, well-nourished Head exam: PRESENT: atraumatic, normocephalic Eye exam: PRESENT: conjunctiva pink, EOMI, PERRLA. ABSENT: scleral icterus Mouth exam: PRESENT: moist, tongue midline Respiratory exam: PRESENT: clear to auscultation tim, symmetrical, tachypnea, u nlabored, other - Supplemental oxygen by nasal cannula. ABSENT: rales, rhonchi, wheezes Cardiovascular exam: PRESENT: RRR, +S1, +S2. ABSENT: diastolic murmur, rubs, systolic murmur Pulses: PRESENT: normal dorsalis pedis pul Vascular exam: PRESENT: normal capillary refill GI/Abdominal exam: PRESENT: normal bowel sounds, soft. ABSENT: distended, guarding, mass, organolmegaly, rebound, tenderness Rectal exam: PRESENT: deferred Extremities exam: PRESENT: full ROM. ABSENT: calf tenderness, clubbing, pedal edema Musculoskeletal exam: PRESENT: ambulatory Neurological exam: PRESENT: alert, awake, oriented to person, oriented to place, oriented to time, oriented to situation, CN II-XII grossly intact. ABSENT: motor sensory deficit Psychiatric exam: PRESENT: appropriate affect, normal mood. ABSENT: homicidal ideation, suicidal ideation Skin exam: PRESENT: dry, intact, warm. ABSENT: cyanosis, rash Results Laboratory Results: 01/28/20 04:35 01/28/20 04:35 01/28/20 01/28/20 01/28/20 04:35 04:35 07:33 WBC 4.3 RBC 4.43 Hgb 13.0 L Hct 39.6 MCV 90 MCH 29.5 MCHC 32.9 RDW 14.6 H Plt Count 119 L Seg Neutrophils % 73.0 Sodium 136.0 L Potassium 4.2 Chloride 97 L Carbon Dioxide 35 H Anion Gap 4 L BUN 19 Creatinine 1.45 H Est GFR ( Amer) 57 L Glucose 102 Lactic Acid 0.7 Calcium 8.9 Ferritin C-Reactive Protein Urine Color Urine Appearance Urine pH Ur Specific [place] Urine Protein Urine Glucose (UA) Urine Ketones Urine Blood Urine Nitrite Ur Leukocyte Esterase Urine WBC (Auto) Urine RBC (Auto) 01/28/20 01/28/20 11:00 11:28 WBC RBC Hgb Hct MCV MCH MCHC RDW Plt Count Seg Neutrophils % Sodium Potassium Chloride Carbon Dioxide Anion Gap BUN Creatinine Est GFR ( Amer) Glucose Lactic Acid Calcium Ferritin 260.00 C-Reactive Protein 62.6 H Urine Color YELLOW Urine Appearance CLEAR Urine pH 6.0 Ur Specific [place] 1.028 Urine Protein 30 H Urine Glucose (UA) NEGATIVE Urine Ketones NEGATIVE Urine Blood NEGATIVE Urine Nitrite NEGATIVE Ur Leukocyte Esterase MODERATE H Urine WBC (Auto) 2 Urine RBC (Auto) 2 01/28/20 04:35 Troponin I < 0.012 Impressions: Chest X-Ray 01/28/20 06:33 IMPRESSION: No acute disease. Assessment and Plan - Diagnosis (1) COVID-19 Is this a current diagnosis for this admission?: Yes Plan: COVID positive D-dimer slightly elevated at 0.85 Ferritin 260, CRP 62.6, LDH 215. Provide supplemental oxygen as needed maintain saturations greater than 89%. Albuterol HFA prn Start Solu-Medrol Ivermectin 10 mg po daily x 2 doses Zinc, vitamin D, vitamin C, and melatonin supplementation. Encourage pulmonary toilet. Isolation precautions. (2) Acute respiratory failure with hypoxia Is this a current diagnosis for this admission?: Yes Plan: As above. (3) CAD (coronary artery disease) Is this a current diagnosis for this admission?: Yes Plan: Chest pain-free. Troponin negative. EKG unremarkable. We will continue home medication regiment once reconciled. Cardiac diet. (4) Chronic congestive heart failure Qualifiers: Heart failure type: unspecified Qualified Code(s): I50.9 - Heart failure, unspecified Is this a current diagnosis for this admission?: Yes Plan: Stable and without exacerbation at this time. Patient is euvolemic. Chest x-ray clear. Resume home medication regiment once reconciled. Cardiac diet. Daily weights, strict I&O's. (5) Hyperlipidemia Qualifiers: Hyperlipidemia type: unspecified Qualified Code(s): E78.5 - Hyperlipidemia, unspecified Is this a current diagnosis for this admission?: Yes Plan: Continue home dose statin once reconciled. Cardiac diet. (6) Hypertension Qualifiers: Hypertension type: essential hypertension Qualified Code(s): I10 - Essential (primary) hypertension Is this a current diagnosis for this admission?: Yes Plan: Blood pressure slightly elevated but acceptable at this time; 143/63 Continue home medication regiment once reconciled. Cardiac diet. - Time Time Spent with patient: 35 or more minutes Medications reviewed and adjusted accordingly: Yes Anticipated Discharge Disposition: Home, Self Care Anticipated Discharge Timeframe: within 72 hours
[2020-01-28] MEDS: METHYLPREDNISOLONE INJ 40 MG/1 ML SDV IV SCH (21:42)
[2020-01-28] MEDS ORDERED: ATORVASTATIN CALCIUM 80 MG TABLET PO SCH (22:00)
[2020-01-28] MEDS ORDERED: TRAZODONE HCL 50 MG TABLET PO SCH (22:00)
[2020-01-29] MEDS ORDERED: PANTOPRAZOLE SODIUM 20 MG TABLET.DR PO SCH (06:00)
[2020-01-29 06:33] LABS: BLOOD UREA NITROGEN 20 mg/dL (7-20); CALCIUM 9.2 mg/dL (8.4-10.2); GLUCOSE 141 mg/dL (75-110); POTASSIUM 4.4 mmol/L (3.6-5.0)
[2020-01-29 06:41] LABS: ANION GAP 5 (5-19); CARBON DIOXIDE 29 mmol/L (22-30); CHLORIDE 102 mmol/L (98-107)
[2020-01-29 06:47] LABS: HEMOGLOBIN 13.9 g/dL (13.5-17.0); MEAN CORPUSCULAR HEMOGLOBIN 30.1 pg (27.0-33.4); MEAN CORPUSCULAR VOLUME 89 fl (80-97); PLATELET COUNT 130 10^3/uL (150-450); RED BLOOD COUNT 4.62 10^6/uL (4.35-5.55); RED CELL DISTRIBUTION WIDTH 14.3 % (11.5-14.0); WHITE BLOOD COUNT 4.8 10^3/uL (4.0-10.5)
[2020-01-29] MEDS ORDERED: ENOXAPARIN SODIUM INJ 40 MG/0.4 ML DISP.SYRIN SUBCUT SCH (10:00)
[2020-01-29] MEDS ORDERED: ISOSORBIDE MONONITRATE 60 MG TAB.ER.24H PO SCH (10:00)
[2020-01-29] MEDS ORDERED: ASPIRIN 81 MG TABLET, ENT COATED PO SCH (10:00)
[2020-01-29] MEDS ORDERED: DOCUSATE SODIUM 100 MG CAPSULE PO SCH (10:00)
[2020-01-29] MEDS: METHYLPREDNISOLONE INJ 40 MG/1 ML SDV IV SCH (10:27)
[2020-01-29] MEDS: CHOLECALCIFEROL (D3) 1,000 UNIT (25 MCG) TABLET PO SCH (10:28)
[2020-01-29] MEDS: ZINC SULFATE 220 MG CAPSULE PO SCH (10:29)
[2020-01-29] MEDS: ASCORBIC ACID 500 MG TABLET PO SCH ×2 (10:29→17:31)
[2020-01-29] MEDS ORDERED: LOPERAMIDE HCL 2 MG CAPSULE PO PRN (11:02)
[2020-01-29] MEDS ORDERED: LOPERAMIDE HCL 2 MG CAPSULE PO ONE (11:30)
[2020-01-29] MEDS: LACTOBACILLUS ACIDOPHILUS 250 MG TAB PO SCH ×2 (12:37→17:30)
[2020-01-29] MEDS ORDERED: IVERMECTIN 3 MG TABLET PO SCH (13:00)
[2020-01-29 16:23] VITALS: BP 134/59
--- NOTE | 2020-01-29 18:19 | PDOC DISCHARGE SUMMARY ---
Impression - Admit/DC Date/PCP Admission Date/Primary Care Provider: 01/28/20 13:11 [facility] Discharge Date: 01/29/20 - Discharge Diagnosis (1) COVID-19 Is this a current diagnosis for this admission?: Yes (2) Acute respiratory failure with hypoxia Is this a current diagnosis for this admission?: Yes (3) CAD (coronary artery disease) Is this a current diagnosis for this admission?: Yes (4) Chronic congestive heart failure Is this a current diagnosis for this admission?: Yes (5) Hyperlipidemia Is this a current diagnosis for this admission?: Yes (6) Hypertension Is this a current diagnosis for this admission?: Yes - Additional Information Resuscitation Status: Full Code Discharge Diet: Cardiac Discharge Activity: Activity As Tolerated, Balance Activity w/Rest, Slowly Increase Activity Referrals: [facility] [Primary Care Provider] - Follow up as needed (*Patient is a [facility] patient* [facility] does not allow anyone but patient to make appointment.) Prescriptions: Lactobacillus Acidophilus [Bacid 250 mg Tablet] 250 mg PO BID #60 tab Prednisone [Deltasone 20 mg Tablet] 40 mg PO DAILY #8 tablet Loperamide HCl [Imodium 2 mg Capsule] 2 mg PO Q4HP PRN #20 capsule PRN Reason: Albuterol Sulfate [Ventolin Hfa 8 gm Mdi] 2 puff IH Q4HP PRN #1 inhaler PRN Reason: Shortness Of Breath Ascorbic Acid [Vitamin C 500 mg Tablet] 500 mg PO BID #28 tablet Zinc Sulfate [Zinc-220 Capsule] 220 mg PO DAILY #30 capsule Home Medications: Aspirin [Ecotrin 81 mg EC Tablet] 81 mg PO DAILY 10/24/19 Atorvastatin Calcium [Lipitor 80 mg Tablet] 80 mg PO QHS 10/24/19 Fluoxetine HCl [Prozac 20 mg Capsule] 40 mg PO DAILY 10/24/19 Furosemide [Lasix 40 mg Tablet] 40 mg PO DAILY 10/24/19 Gabapentin [Neurontin 300 mg Capsule] 900 mg PO TID 10/24/19 Omeprazole 20 mg PO BID 10/24/19 Potassium Citrate [Potassium Citrate ER] 10 meq PO DAILY 10/24/19 Ranolazine [Ranexa] 1,000 mg PO BID 10/24/19 Tamsulosin HCl [Flomax 0.4 mg Cap.sr] 0.4 mg PO DAILY 10/24/19 Trazodone HCl 100 mg PO QHS 10/24/19 Amlodipine Besylate [Norvasc 10 mg Tablet] 10 mg PO DAILY 01/28/20 Cholecalciferol (Vitamin D3) [Vitamin D3 1000 Unit Tablet] 2,000 unit PO DAILY 01/28/20 Clopidogrel Bisulfate [Plavix] 75 mg PO DAILY 01/28/20 Cyclosporine 0.05% Oph Emulsio [Restasis 0.05% Oph Emulsion Pf 0.4 ml] 1 drop OU Q12 01/28/20 Isosorbide Mononitrate [Imdur 60 mg Tablet.er] 60 mg PO DAILY 01/28/20 Nitroglycerin 0.4 mg SL Q5MP PRN 01/28/20 Acetaminophen [Tylenol 325 mg Tablet] 650 mg PO Q4HP PRN tablet 01/29/20 Albuterol Sulfate [Ventolin Hfa 8 gm Mdi] 2 puff IH Q4HP PRN #1 inhaler 01/29/20 Ascorbic Acid [Vitamin C 500 mg Tablet] 500 mg PO BID #28 tablet 01/29/20 Aspirin [Ecotrin 81 mg EC Tablet] 81 mg PO DAILY tabec 01/29/20 Lactobacillus Acidophilus [Bacid 250 mg Tablet] 250 mg PO BID #60 tab 01/29/20 Loperamide HCl [Imodium 2 mg Capsule] 2 mg PO Q4HP PRN #20 capsule 01/29/20 Prednisone [Deltasone 20 mg Tablet] 40 mg PO DAILY #8 tablet 01/29/20 Zinc Sulfate [Zinc-220 Capsule] 220 mg PO DAILY #30 capsule 01/29/20 History of Present Illiness History of Present Illness: MALLORY ORDONEZ is a 79 year old male with a past medical history significant forCHF, CAD, AICD, hypertension, hyperlipidemia, pulmonary embolism, GERD, and depression who presented to the emergency department with a complaint of fever, intermittent diarrhea with nausea, dyspnea, and generalized malaise. Evaluation in the emergency department revealed hypoxia on room air, fever (101.5), unremarkable CBC, elevated D-dimer to 0.85, chemistry noted for bicarb 35, CRP 62.6, unremarkable urinalysis. Chest x-ray is benign. Rapid Covid positive. Patient was provided dexamethasone and supplemental oxygen. He is referred to the hospitalist service for further evaluation management of the above-stated complaints findings. Physical Exam Vital Signs: Temp Pulse Resp BP Pulse Ox 98.2 F 68 18 134/59 H 94 01/29/20 17:14 01/29/20 17:14 01/29/20 17:14 01/29/20 16:12 01/29/20 17:14 Intake & Output 01/28/20 01/29/20 01/30/20 06:59 06:59 06:59 Intake Total 540 Balance 540 Weight 116.3 kg 115.3 kg Results Laboratory Results: WBC 4.8 10^3/uL (4.0-10.5) 01/29/20 05:15 RBC 4.62 10^6/uL (4.35-5.55) 01/29/20 05:15 Hgb 13.9 g/dL (13.5-17.0) 01/29/20 05:15 Hct 41.0 % (37.9-51.0) 01/29/20 05:15 MCV 89 fl (80-97) 01/29/20 05:15 MCH 30.1 pg (27.0-33.4) 01/29/20 05:15 MCHC 34.0 g/dL (32.0-36.0) 01/29/20 05:15 RDW 14.3 % (11.5-14.0) H 01/29/20 05:15 Plt Count 130 10^3/uL (150-450) L 01/29/20 05:15 Lymph % (Auto) 15.2 % (13-45) 01/28/20 04:35 [place] % (Auto) 11.4 % (3-13) 01/28/20 04:35 Eos % (Auto) 0.1 % (0-6) 01/28/20 04:35 Baso % (Auto) 0.3 % (0-2) 01/28/20 04:35 Absolute Neuts (auto) 3.2 10^3/uL (1.7-8.2) 01/28/20 04:35 Absolute Lymphs (auto) 0.7 10^3/uL (0.5-4.7) 01/28/20 04:35 Absolute Monos (auto) 0.5 10^3/uL (0.1-1.4) 01/28/20 04:35 Absolute Eos (auto) 0.0 10^3/uL (0.0-0.6) 01/28/20 04:35 Absolute Basos (auto) 0.0 10^3/uL (0.0-0.2) 01/28/20 04:35 Seg Neutrophils % 73.0 % (42-78) 01/28/20 04:35 Fibrinogen 591 mg/dL (209-497) H 01/28/20 04:35 D-Dimer 0.85 ug/mL (0.00-0.50) H 01/28/20 04:35 Sodium 136.1 mmol/L (137-145) L 01/29/20 05:15 Potassium 4.4 mmol/L (3.6-5.0) 01/29/20 05:15 Chloride 102 mmol/L (98-107) 01/29/20 05:15 Carbon Dioxide 29 mmol/L (22-30) 01/29/20 05:15 Anion Gap 5 (5-19) 01/29/20 05:15 BUN 20 mg/dL (7-20) 01/29/20 05:15 Creatinine 1.10 mg/dL (0.52-1.25) 01/29/20 05:15 Est GFR ( Amer) > 60 (>60) 01/29/20 05:15 Est GFR (MDRD) Non-Af > 60 (>60) 01/29/20 05:15 Glucose 141 mg/dL (75-110) H 01/29/20 05:15 Lactic Acid 0.7 mmol/L (0.7-2.1) 01/28/20 07:33 Calcium 9.2 mg/dL (8.4-10.2) 01/29/20 05:15 Ferritin 260.00 ng/mL (17.9-464.0) 01/28/20 11:28 Lactate Dehydrogenase 215 U/L (120-246) 01/28/20 11:28 Troponin I < 0.012 ng/mL 01/28/20 04:35 C-Reactive Protein 62.6 mg/L (<10.0) H 01/28/20 11:28 Urine Color YELLOW 01/28/20 11:00 Urine Appearance CLEAR 01/28/20 11:00 Urine pH 6.0 (5.0-9.0) 01/28/20 11:00 Ur Specific [place] 1.028 01/28/20 11:00 Urine Protein 30 mg/dL (NEGATIVE) H 01/28/20 11:00 Urine Glucose (UA) NEGATIVE mg/dL (NEGATIVE) 01/28/20 11:00 Urine Ketones NEGATIVE mg/dL (NEGATIVE) 01/28/20 11:00 Urine Blood NEGATIVE (NEGATIVE) 01/28/20 11:00 Urine Nitrite NEGATIVE (NEGATIVE) 01/28/20 11:00 Urine Bilirubin NEGATIVE (NEGATIVE) 01/28/20 11:00 Urine Urobilinogen 2.0 mg/dL (<2.0) H 01/28/20 11:00 Ur Leukocyte Esterase MODERATE (NEGATIVE) H 01/28/20 11:00 Urine WBC (Auto) 2 /HPF 01/28/20 11:00 Urine RBC (Auto) 2 /HPF 01/28/20 11:00 Squamous Epi Cells Auto <1 /HPF 01/28/20 11:00 Urine Mucus (Auto) RARE /LPF 01/28/20 11:00 Urine Ascorbic Acid 20 (NEGATIVE) H 01/28/20 11:00 01/28/20 04:35 Troponin I < 0.012 Impressions: Chest X-Ray 01/28/20 06:33 IMPRESSION: No acute disease. Stroke Is this a Stroke Patient?: No Acute Heart Failure Is this a Heart Failure Patient?: No
== END 2020-01-29 18:15 | disposition home or self-care (01) | DRG 179 ==
LOC: ER 04:27 → EH 13:11 → 3N 14:37
PROVIDERS: ADMIT Hospitalist; ATTEND Registered Nurse
DX: U07.1 COVID-19 (principal); R19.7 Diarrhea, unspecified; R53.83 Other fatigue; R11.0 Nausea; R50.9 Fever, unspecified; R09.02 Hypoxemia; R06.00 Dyspnea, unspecified; I25.10 Atherosclerotic heart disease of native coronary artery without angina pectoris; E78.5 Hyperlipidemia, unspecified; I11.0 Hypertensive heart disease with heart failure; I50.9 Heart failure, unspecified; K21.9 Gastro-esophageal reflux disease without esophagitis; Z86.711 Personal history of pulmonary embolism; F32.9 Major depressive disorder, single episode, unspecified; R77.8 Other specified abnormalities of plasma proteins; Z95.810 Presence of automatic (implantable) cardiac defibrillator; Z90.49 Acquired absence of other specified parts of digestive tract; Z79.899 Other long term (current) drug therapy; Z79.82 Long term (current) use of aspirin
CPT/HCPCS: 36415; 71045; 80048; 81001; 82728; 83605; 83615; 84484; 85025; 85027; 85379; 85384; 86140; 87040; 93005; 93010; 99285; J1100; J1650; J2920; J3490; J8540